=== PATIENT | female | born 1985 | race African-American/Black ===

== ENCOUNTER 2023-10-27 10:26 | Emergency (ER) | payer MEDICAID ==
[~2023-10-27] VITALS: Ht 172.7 cm; Wt 68.0 kg
[2023-10-27 10:32] VITALS: BP 175/121; O2SAT 97
[2023-10-27 11:17] LABS: BASOPHILS % 1.2 % (0.0-2.0); HEMATOCRIT. 42.5 % (36.0-48.0); HEMOGLOBIN. 13.7 g/dL (12.0-16.0); LYMPHOCYTES % 32.4 % (20.0-50.0); MEAN CORPUSCULAR HEMOGLOBIN 29.6 pg (28.0-32.0); MEAN CORPUSCULAR HGB CONC 32.2 g/dL (31.0-37.0); MEAN CORPUSCULAR VOLUME 91.9 fL (81.0-99.0); MEAN PLATELET VOLUME 8.6 fl (7.4-10.4); MONOCYTES % 8.9 % (2.0-8.0); NEUTROPHILS % 56.5 % (40.0-76.0); PLATELET 321 x1000/uL (130-400); RED BLOOD CELL COUNT 4.62 mill/uL (4.2-5.4); WHITE BLOOD COUNT 7.1 x1000/uL (4.5-11.0)
[2023-10-27 11:40] LABS: ALANINE AMINOTRANSFERASE 23 IU/L (10-49); ALBUMIN 4.2 g/dL (3.2-4.8); ASPARTATE AMINOTRANSFERASE 39 IU/L (<34); BILIRUBIN TOTAL 0.4 mg/dL (0.1-1.0); CALCIUM 9.4 mg/dL (8.7-10.4); CARBON DIOXIDE 30 mEq/L (21-32); CHLORIDE 105 mEq/L (98-107); CREATININE 0.5 mg/dL (0.6-1.0); GLUCOSE 83 mg/dL (70-105); PROTEIN TOTAL 7.6 g/dL (6.0-8.3); SODIUM 141 mEq/L (136-145); UREA NITROGEN BLOOD 6 mg/dL (9-23)
[2023-10-27 12:24] LABS: CLARITY URINE CLEAR (CLEAR); COLOR URINE YELLOW (YELLOW); PH URINE 6.5 (4.5-8.0); PROTEIN URINE NEGATIVE (NEGATIVE)
[2023-10-27 12:25] LABS: GLUCOSE URINE NEGATIVE (NEGATIVE); KETONES URINE NEGATIVE (NEGATIVE); LEUKOCYTE ESTERASE URINE 3+ (NEGATIVE); NITRITE URINE NEGATIVE (NEGATIVE); OCCULT BLOOD URINE TRACE (NEGATIVE); UROBILINOGEN URINE 0.2 E.U./dL (0.2-1.0)
[2023-10-27 12:28] LABS: SQUAMOUS EPITHELIAL CELL URINE 3+ /lpf (RARE/1+)
[2023-10-27 12:30] LABS: WBC URINE 50-100 /hpf (0-2)
[2023-10-27 12:35] LABS: TRICHOMONAS URINE FEW
[2023-10-27 12:41] LABS: BACTERIA URINE 2+
[2023-10-27] MEDS ORDERED: CEFP200T13 MT (13:59)
[2023-10-27] MEDS ORDERED: METR-167 MT (13:59)
[2023-10-27] MEDS ORDERED: LIDOCAINE HCL 1% 20ML VIAL (Pyxis) INJ INFIL ONE (14:00)
[2023-10-27] MEDS ORDERED: CEFTRIAXONE SODIUM 1 G/VIAL IM ONE (14:00)
[2023-10-27 14:36] VITALS: PULSE 97; RESP 20; TEMP 98.2
== END 2023-10-27 14:36 | disposition home or self-care (01) ==
LOC: ER 10:26
DX: A59.01 Trichomonal vulvovaginitis (principal)
CPT/HCPCS: 99283; 80053; 81003; 81025; 83690; 85025; 87086; 87210; 36415; 96372; J0696; J3490

== ENCOUNTER 2024-06-04 08:24 | Emergency (ER) | payer MEDICAID, OTHER ==
[~2024-06-04] VITALS: Ht 172.7 cm; Wt 78.0 kg
[~2024-06-04 08:24] MED LIST: CEFP200T13 MT; METR-167 MT
[2024-06-04 08:31] VITALS: O2SAT 98
[2024-06-04] MEDS: KETOROLAC 30MG/ML VIAL IV ONE (09:16)
[2024-06-04] MEDS ORDERED: PROPOFOL 200MG/20ML VIAL IV ONE (10:00)
[2024-06-04] MEDS: ONDANSETRON HCL 4MG/2ML INJ IV ONE (10:00)
[2024-06-04] MEDS: MORPHINE SULFATE 4 MG/ML INJ (FOR IV/IM USE) IV ONE (10:41)
[2024-06-04] MEDS: FENTANYL CITRATE/PF 50MCG/ML 2ML VIAL IV ONE ×2 (12:54→15:15)
[2024-06-04] MEDS: KETAMINE HCL 50 MG/ML 10ML IV ONE ×2 (13:11→13:44)
[2024-06-04] MEDS ORDERED: KETAMINE HCL 50 MG/ML 10ML IV ONE (13:15)
[2024-06-04] MEDS: PROPOFOL 200MG/20ML VIAL IV ONE (13:43)
[2024-06-04] MEDS ORDERED: IBUP-2029 MT (13:50)
[2024-06-04 15:00] VITALS: BP 154/105; RESP 17; TEMP 98.7
[2024-06-04 15:15] VITALS: PULSE 95
== END 2024-06-04 14:45 | disposition home or self-care (01) ==
LOC: ER 08:24
DX: S43.004A Unspecified dislocation of right shoulder joint, initial encounter (principal); F17.200 Nicotine dependence, unspecified, uncomplicated; F12.10 Cannabis abuse, uncomplicated; X58.XXXA Exposure to other specified factors, initial encounter; Y93.89 Activity, other specified; Y92.89 Other specified places as the place of occurrence of the external cause; Y99.8 Other external cause status
CPT/HCPCS: 73030; 23650; 96374; 96375; 99152; 99285; J3010; J3490; J1885; J2405; J2270; Z7610 ×3; J2704

== ENCOUNTER 2024-06-05 18:35 | Emergency (ER) | payer MEDICAID, OTHER ==
[~2024-06-05] VITALS: Ht 175.3 cm; Wt 88.9 kg
[~2024-06-05 18:35] MED LIST changes: +IBUP-2029 MT
[2024-06-05 18:43] VITALS: TEMP 98.4; O2SAT 96
[2024-06-05] MEDS ORDERED: PROPOFOL 200MG/20ML VIAL IV PRN (19:30)
[2024-06-05] MEDS: PROPOFOL 200MG/20ML VIAL IV ONE (20:27)
[2024-06-05 20:35] VITALS: BP 181/107; PULSE 83; RESP 11
[2024-06-05] MEDS: ONDANSETRON HCL 4MG/2ML INJ IV ONE (20:38)
== END 2024-06-05 21:41 | disposition home or self-care (01) ==
LOC: ER 18:35
DX: S43.084A Other dislocation of right shoulder joint, initial encounter (principal); F12.90 Cannabis use, unspecified, uncomplicated; X58.XXXA Exposure to other specified factors, initial encounter; Y93.9 Activity, unspecified; Y92.89 Other specified places as the place of occurrence of the external cause; Y99.8 Other external cause status
CPT/HCPCS: 73030; 23650; 96374; 99152; 99285; J2405; J2704; Z7610

== ENCOUNTER 2025-08-13 08:38 | Emergency (ER) | payer OTHER ==
[~2025-08-13] VITALS: Ht 172.7 cm; Wt 75.0 kg
[~2025-08-13 08:38] MED LIST changes: +IBUP-1455 MT; -IBUP-2029 MT
[2025-08-13 08:41] VITALS: O2SAT 98
[2025-08-13 09:23] LABS: HEMATOCRIT. 26.1 % (36.0-48.0); HEMOGLOBIN. 7.5 g/dL (12.0-16.0); MEAN PLATELET VOLUME 7.8 fl (7.4-10.4); PLATELET 412 x1000/uL (130-400); RED BLOOD CELL COUNT 4.32 mill/uL (4.2-5.4); RED CELL DISTRIBUTION WIDTH 21.7 % (11.6-14.6)
[2025-08-13 09:36] LABS: CREATININE 0.5 mg/dL (0.6-1.0); HCG SCREEN NEGATIVE
[2025-08-13 09:37] LABS: UREA NITROGEN BLOOD < 5 mg/dL (9-23)
[2025-08-13 09:38] LABS: ASPARTATE AMINOTRANSFERASE 34 IU/L (<34)
[2025-08-13 09:39] LABS: BILIRUBIN DIRECT 0.2 mg/dL (<=3.0); BILIRUBIN TOTAL 0.4 mg/dL (0.1-1.0); PROTEIN TOTAL 7.2 g/dL (6.0-8.3)
[2025-08-13 10:21] LABS: CLARITY URINE CLEAR (CLEAR); COLOR URINE YELLOW (YELLOW); GLUCOSE URINE NEGATIVE (NEGATIVE); KETONES URINE NEGATIVE (NEGATIVE); LEUKOCYTE ESTERASE URINE NEGATIVE (NEGATIVE); NITRITE URINE NEGATIVE (NEGATIVE); OCCULT BLOOD URINE NEGATIVE (NEGATIVE); PH URINE 5.5 (4.5-8.0); PROTEIN URINE 1+ (NEGATIVE); SPECIFIC GRAVITY URINE 1.005 (1.005-1.030); UROBILINOGEN URINE 0.2 E.U./dL (0.2-1.0)
[2025-08-13 10:59] LABS: SQUAMOUS EPITHELIAL CELL URINE 2+ /lpf (RARE/1+); WBC URINE 0-2 /hpf (0-2)
[2025-08-13 11:00] LABS: BACTERIA URINE 2+; RBC URINE 0-2 /hpf (0-2)
[2025-08-13 11:04] LABS: BASOPHILS % MANUAL 1.0 % (0.0-2.0); EOSINOPHILS % MANUAL 1.0 % (0.0-5.0); LYMPHOCYTES % MANUAL 37.0 % (20.0-60.0); MONOCYTES % MANUAL 10.0 % (2.0-8.0); NEUTROPHILS % MANUAL 51.0 % (45.0-75.0); NUCLEATED RED BLOOD CELLS 1 /100 WBC; PLATELET ESTIMATE SLIGHTLY INCREASED
[2025-08-13 11:31] VITALS: BP 119/75; PULSE 89; RESP 17; TEMP 37; O2SAT 98
== END 2025-08-13 12:06 | disposition home or self-care (01) ==
LOC: ER 08:38
DX: R10.32 Left lower quadrant pain (principal); F10.90 Alcohol use, unspecified, uncomplicated; F12.90 Cannabis use, unspecified, uncomplicated; Z79.899 Other long term (current) drug therapy; Y90.9 Presence of alcohol in blood, level not specified
CPT/HCPCS: 80076; 80048; 81003; 84703; 83690; 85025; 36415; 99283; Z7610 ×2; A4606